=== PATIENT | female | born 1980 | race Caucasian/White ===

== ENCOUNTER → 2017-04-14 | Outpatient (CLI) | payer OTHER | END | disposition home or self-care (01) | LOC: LAB.O 14:15 | PROVIDERS: ATTEND Obstetrics & Gynecology | DX: Z34.91 Encounter for supervision of normal pregnancy, unspecified, first trimester (principal); Z86.14 Personal history of Methicillin resistant Staphylococcus aureus infection; Z3A.11 11 weeks gestation of pregnancy ==

== ENCOUNTER 2020-03-09 18:34 | Emergency (ER) | payer SELFPAY ==
[2020-03-09] MEDS ORDERED: ACETAMINOPHEN 500 MG TAB PO ONE (18:48)
--- NOTE | 2020-03-09 19:08 | ED.PDOC ---
History of Present Illness - General Time Seen by Provider: 03/09/20 18:47 - History of Present Illness Initial Comments: 39 yo F no significant PMH presents to ED c/o left ankle pain and right knee scapre after mechanical fall on concrete 40 mins ago. Denies head injury LOC fever chills nausea vomiting diarrhea chest pain sob diaphoresis. No change in diet rest bowel or bladder denies cough recent travel or contact with covid 19 no other c/o today. Allergies/Adverse Reactions: Allergies NO KNOWN ALLERGY Allergy (Verified 03/09/20 19:14) Home Medications: Ambulatory Orders Fe Fum-Iron Polysacch Complex- [Integra Plus] 1 cap PO DAILY 11/17/14 Glyburide 2.5 mg PO TID 11/17/14 Metformin HCl [Metformin Hydrochloride] 500 mg PO TID 11/17/14 Vit W/ Ferrous Fumara [] 1 tab PO DAILY 11/17/14 Acetaminophen W/ Codeine [Tylenol W/ CODEINE #3] 1 - 2 ea PO Q8H PRN #16 11/19/14 Ibuprofen [Motrin Tab] 800 mg PO Q8H #30 tab 11/19/14 Sertraline HCl [Zoloft] 50 mg PO DAILY #60 tab 11/19/14 Zolpidem Tartrate [Ambien] 5 mg PO ONCE PRN #30 tab 11/19/14 Acetaminophen [Tylenol] 650 mg PO Q6H PRN #30 tab 03/09/20 Ibuprofen 600 mg PO Q6H PRN #20 tab 03/09/20 Review of Systems - Review of Systems Constitutional: States: see HPI EENTM: States: see HPI Respiratory: States: see HPI Cardiology: States: see HPI Gastrointestinal/Abdominal: States: see HPI Genitourinary: States: see HPI Musculoskeletal: States: see HPI Skin: States: see HPI Neurological: States: see HPI Endocrine: States: see HPI Hematologic/Lymphatic: States: see HPI All other Systems: Reviewed and Negative Past Medical History (General) - Patient Medical History Hx Diabetes: Yes - gestational Hx Renal Disease: No Hx MRSA: Yes - Thigh Wound 2013 MRSA Source:: Wound - Social History Hx Substance Use: Yes - Female History Hx Last Menstrual Period: 01/11/14 Expected Date of Delivery:: 11/21/14 Family Medical History - Family History Maternal Grandparents Living Status: Still Living Hx Cardiac Disease: Yes Daughter Maternal Hx Family Asthma: Yes Paternal Grandparents Hx Family Stroke: Yes Hx Family Diabetes: Yes Physical Exam - Physical Exam General Appearance: No apparent distress Eyes, Ears, Nose, Throat: normal ENT inspection Neck: non-tender, full range of motion Cardiovascular/Respiratory: regular rate, rhythm Gastrointestinal/Abdominal: non-tender Back: normal inspection Thigh/Hip: normal inspection Leg: normal inspection Knee: abrasions Ankle: other - tenderness left ankle exam limited secondary to pain Foot: non-tender Neuro/Tendon: normal sensation, normal motor functions Mental Status: alert, oriented x 3 Skin: normal color Progress - Progress Progress: 03/09/20 19:09 A/P-Ankle Pain Knee Pain Fall Contusions Abrasions-tylenol upreg xr right knee xr left ankle tetanus reassess PPE worn-N95 surgical mask with attached face shield over N95 goggles gloves and a face shield over that 03/09/20 19:31 03/09/20 19:44 EXAM: XR Left Ankle Complete, 3 or More Views CLINICAL HISTORY: pain TECHNIQUE: Frontal, lateral and oblique views of the left ankle. COMPARISON: No relevant prior studies available. FINDINGS: Bones/joints: Unremarkable. No acute fracture. No dislocation. Soft tissues: Unremarkable. IMPRESSION: No abnormality noted. Electronically signed by: Sylvia Patten MD 03/09/2020 7:35 PM CDT tylenol ibuprofen deonna wrap cruthches Departure - Departure Clinical Impression: Multiple contusions, Multiple abrasions Ankle pain Qualifiers: Chronicity: acute Laterality: right Qualified Code(s): M25.571 - Pain in right ankle and joints of right foot Knee pain Qualifiers: Chronicity: acute Laterality: right Qualified Code(s): M25.561 - Pain in right knee Fall Qualifiers: Encounter type: initial encounter Qualified Code(s): W19.XXXA - Unspecified fall, initial encounter Time of Disposition: 19:48 Disposition: Discharge to Home or Self Care Condition: Good Referrals: Enmanuel Cordova MD [Primary Care Provider] - 1-2 Weeks Prescriptions: Acetaminophen [Tylenol] 650 mg PO Q6H PRN #30 tab PRN Reason: Pain Ibuprofen 600 mg PO Q6H PRN #20 tab PRN Reason: Pain Home Medications: Ambulatory Orders Fe Fum-Iron Polysacch Complex- [Integra Plus] 1 cap PO DAILY 11/17/14 Glyburide 2.5 mg PO TID 11/17/14 Metformin HCl [Metformin Hydrochloride] 500 mg PO TID 11/17/14 Vit W/ Ferrous Fumara [] 1 tab PO DAILY 11/17/14 Acetaminophen W/ Codeine [Tylenol W/ CODEINE #3] 1 - 2 ea PO Q8H PRN #16 11/19/14 Ibuprofen [Motrin Tab] 800 mg PO Q8H #30 tab 11/19/14 Sertraline HCl [Zoloft] 50 mg PO DAILY #60 tab 11/19/14 Zolpidem Tartrate [Ambien] 5 mg PO ONCE PRN #30 tab 11/19/14 Acetaminophen [Tylenol] 650 mg PO Q6H PRN #30 tab 03/09/20 Ibuprofen 600 mg PO Q6H PRN #20 tab 03/09/20
[2020-03-09 19:14] VITALS: TEMP 99.9; O2SAT 99
--- NOTE | 2020-03-09 19:36 | RAD ---
EXAM: XR Left Ankle Complete, 3 or More Views CLINICAL HISTORY: pain TECHNIQUE: Frontal, lateral and oblique views of the left ankle. COMPARISON: No relevant prior studies available. FINDINGS: Bones/joints: Unremarkable. No acute fracture. No dislocation. Soft tissues: Unremarkable. IMPRESSION: No abnormality noted. Electronically signed by: Sylvia Patten MD 03/09/2020 7:35 PM CDT
[2020-03-09] MEDS ORDERED: CHLORHEXIDINE GLUCONATE 4 % 15 ML UD TOP ONE (19:58)
[2020-03-09 20:35] VITALS: BP 136/95
== END 2020-03-09 20:31 | disposition home or self-care (01) ==
LOC: ER 18:34
DX: T14.8XXA Other injury of unspecified body region, initial encounter (principal); M25.571 Pain in right ankle and joints of right foot; M25.561 Pain in right knee; W19.XXXA Unspecified fall, initial encounter; Y92.9 Unspecified place or not applicable